=== PATIENT | female | born 1985 | race African-American/Black ===

== ENCOUNTER 2018-06-29 00:38 | Emergency (ER) | payer OTHER ==
[~2018-06-29] VITALS: Ht 172.7 cm; Wt 99.8 kg
[~2018-06-29 00:38] MED LIST: IBUPROFEN800 M1 PO; IRON325 M3 PO; PRENATAL TABLE1 EAC2 PO; VICODIN 300 MG-1 TAB PO
--- NOTE | 2018-06-29 01:07 | ED GI/GU/ABDOMINAL COMPLAINT ---
History of Present Illness General Chief Complaint: Nausea, Vomiting, Diarrhea Stated Complaint: NAUSEA,VOMITING,ABD PAIN Source: patient Exam Limitations: no limitations Vital Signs & Intake/Output Vital Signs & Intake/Output Vital Signs Date Time Temp Pulse Resp B/P B/P Pulse O2 O2 Flow FiO2 Mean Ox Delivery Rate 06/29 0528 98.0 68 20 108/56 99 06/29 0054 96.7 63 20 123/82 98 Room Air Allergies Coded Allergies: No Known Drug Allergies (06/02/16) shellfish derived (Mild, DIARRHEA 06/02/16) Reconcile Medications Vit No.130/Iron/FA ( Tablet) 1 EACH TABLET 1 TAB PO D vitamin support Triage Note: TRIAGE: PATIENT TO ER FROM [facility], IV EST #22 RF BY CBC RN W/ LR INFUSING, PATIENT REPORTING +N/V/D X 2 DAYS "FEEL LIKE I'M IN LABOR." PATIENT OF [facility]. DUE DATE 08/14/18. NO CONTRACTIONS NOTED BY THE [facility], FHT WNL. PAPERWORK FROM THE MEDICAL CENTER ATTACHED TO HER PAPERWORK. Triage Nurses Notes Reviewed? yes ? y Is pt currently ? No Onset: Gradual Duration: day(s): Timing: recent history Location: generalized abdomen Radiation: no radiation Modifying Factors: Worsens With: defecating, vomiting. Associated Symptoms: abdominal pain, diarrhea, nausea/vomiting HPI: 32 yo woman, 33 weeks gestation, presents with nausea, vomiting, diarrhea after eating at [employer] on 06/27. She notes diffuse mostly upper abdominal cramps. She was evaluated in child center, was not determined to be in labor, had fetus had + heart tones, and she was referred to ED. She notes no dysuria, fever, chills, dizziness, dyspnea, or chest pain. Past History Travel History Traveled to [place] past 21 day No Medical History Any Pertinent Medical History? 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 Hx Contributory? No Review of Systems Review of Systems Constitutional: Reports: no symptoms. EENTM: Reports: no symptoms. Respiratory: Reports: no symptoms. Cardiovascular: Reports: no symptoms. GI: Reports: no symptoms. Genitourinary: Reports: no symptoms. Musculoskeletal: Reports: no symptoms. Skin: Reports: no symptoms. Neurological/Psychological: Reports: no symptoms. Hematologic/Endocrine: Reports: no symptoms. Immunologic/Allergic: Reports: no symptoms. All Other Systems: Reviewed and Negative Physical Exam Physical Exam General Appearance: well developed/nourished, mild distress, moderate distress Head: atraumatic, normal appearance Eyes: Bilateral: normal appearance. Ears, Nose, Throat, Mouth: hearing grossly normal, moist mucous membrane Neck: normal inspection, supple, full range of motion Respiratory: normal breath sounds, chest non-tender, no respiratory distress, quiet respiration, lungs clear Cardiovascular: regular rate/rhythm Gastrointestinal: normal bowel sounds, soft, mild mid epigastric tenderness to palpation. no rlq tenderness, no llq tenderness. Pelvic: CERVIX CLOSED, SCANT YELLOW DISCHARGE, NO SIGNIFICANT ADNEXAL TENDERNESS TO PALPATION. Back: normal inspection Extremities: normal range of motion Neurologic/Psych: no motor/sensory deficits, awake, alert, oriented x 3 Skin: intact, normal color, warm/dry Core Measures ACS in differential dx? No Sepsis Present: No Sepsis Focused Exam Completed? No Progress Differential Diagnosis: food poisoning vs gall bladder issues vs other. Plan of Care: Orders Procedure Date/time Status TRICHOMONAS 06/29 0555 Complete POTASSIUM HYDROXIDE (EDDIE) 06/29 0555 Complete GENITAL CULTURE 06/29 0555 Active CHLAMYDIA-GC DNA PROBE 06/29 05 Active Straight Cath 06/29 0539 Active URINALYSIS 06/29 0046 Complete TROPONIN LEVEL 06/29 0046 Complete LIPASE 06/29 0046 Complete HEPATIC FUNCTION PANEL 06/29 0046 Complete HUMAN BETA HCG SCREEN 06/29 0046 Complete CBC WITHOUT DIFFERENTIAL 06/29 0046 Complete BASIC METABOLIC PANEL 06/29 0046 Complete AMYLASE 06/29 0046 Complete Current Medications Sig/Estuardo Start time Last Medication Dose Stop Time Status Admin Sodium Chloride 1,000 ML BOLUS ONE 06/29 0545 AC 06/29 (Normal Saline 0.9%) 06/29 0644 0607 Ondansetron HCl 4 MG ONCE ONE 06/29 0115 CAN (Zofran) 06/29 0116 Laboratory Tests 06/29/ 0545: Urinalysis LIGHT H, Urine Color YEL, Urine Clarity HAZY H, Urine pH 7.0, Ur Specific Viola 1.025, Urine Protein TRACE H, Urine Ketones >=80, Urine Nitrite NEG, Urine Bilirubin NEG, Urine Urobilinogen 0.2, Ur Leukocyte Esterase NEG, Ur Microscopic SEDIMENT EXAMINED, Urine RBC 1-3, Urine WBC 3-5 H, Ur Epithelial Cells MOD H, Urine Bacteria MOD H, Urine Mucus FEW, Urine Hemoglobin NEG, Urine Glucose NEG 06/29/18 0220: Anion Gap 9, Estimated GFR > 60, BUN/Creatinine Ratio 16.7, Glucose 118 H, Calcium 8.9, Total Bilirubin 0.3, Direct Bilirubin 0.2, AST 11 L, ALT 18, Alkaline Phosphatase 154 H, Troponin I < 0.01, Total Protein 6.3, Albumin 3.4 L, Amylase 54, Lipase 70, Total Beta HCG POSITIVE, CBC w Diff MAN DIFF ORDERED, RBC 3.28 L, MCV 94.1, MCH 31.2 H, MCHC 33.1, RDW 15.4 H, MPV 8.5, Gran % 89.6 H, Lymphocytes % 8.0 L, Monocytes % 1.9, Eosinophils % 0, Basophils % 0.5, Absolute Granulocytes 14.5 H, Segmented Neutrophils 86 H, Band Neutrophils 2, Absolute Lymphocytes 1.3, Lymphocytes 10 L, Monocytes 2, Absolute Monocytes 0.3 , Absolute Eosinophils 0, Absolute Basophils 0.1, Platelet Estimate ADEQUATE, Normocytic RBCs VERIFIED, Normochromic RBCs VERIFIED Microbiology 06/29 600 GENITAL: GC DNA Probe - RECD 06/29 600 GENITAL: Chlamydia DNA Probe (JOHN) - RECD 06/29 600 GENITAL: EDDIE Preparation - COMP 06/29 600 GENITAL: Trichomonas Preparation - COMP 06/29 600 GENITAL: Genital Culture - RECD Initial ED EKG: none Departure Departure Disposition: HOME OR SELF CARE Condition: Stable Clinical Impression Primary Impression: Nausea and vomiting Secondary Impressions: Abdominal pain, Referrals: Patient Has No Primary Care Dr (PCP/Family) Departure Forms: Customer Survey General Discharge Information Comments 06/29/18, 5:30am... discussed with dr. ortega (ob)... pt with abdominal pain, 33 weeks gestation, merits transfer to [facility] for higher level of care. 06/29/18, 5:42am... 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 she will go to the ED for further evaluation. Critical Care Note Critical Care Note Critical Care Time: 30-74 min
[2018-06-29 02:26] LABS: ABSOLUTE BASOPHIL COUNT 0.1 /CUMM (0.0-0.2); ABSOLUTE EOSINOPHIL COUNT 0 /CUMM (0.0-0.7); ABSOLUTE GRANULOCYTE CT 14.5 /CUMM (1.4-6.5); ABSOLUTE LYMPH COUNT 1.3 /CUMM (1.2-3.4); ABSOLUTE MONOCYTE COUNT 0.3 /CUMM (0.10-0.60); BASOPHIL % 0.5 % (0.0-2.0); EOSINOPHIL % 0 % (0-5); GRANULOCYTE % 89.6 % (42.2-75.2); HEMATOCRIT 30.9 % (37-47); MEAN CORPUSCULAR HGB 31.2 PG (27.0-31.0); MEAN CORPUSCULAR HGB CONC 33.1 G/DL (33.0-37.0); MEAN CORPUSCULAR VOLUME 94.1 FL (81.0-99.0); MEAN PLATELET VOLUME 8.5 FL (7.4-10.4); PLATELET COUNT 309 /CUMM (130-400); RBC DISTRIBUTION WIDTH 15.4 % (11.5-14.5); RED BLOOD CELL CT 3.28 /CUMM (4.20-5.40); WHITE BLOOD CELL COUNT 16.2 /CUMM (4.8-10.8)
[2018-06-29 05:28] VITALS: BP 108/56
== END 2018-06-29 06:36 ==
LOC: ERH 00:38
PROVIDERS: Pediatrics
DX: O21.9 Vomiting of pregnancy, unspecified (principal); R10.9 Unspecified abdominal pain; R11.0 Nausea; Z3A.33 33 weeks gestation of pregnancy
CPT/HCPCS: 87070; 81001; 87491; 87591; 96374; 96375; 99291; G0463; J0131; J2550